=== PATIENT | female | born 1970 | race Caucasian/White ===

== ENCOUNTER 2019-11-18 09:21 | Observation (INO) | payer OTHER ==
[~2019-11-18] VITALS: Ht 162.6 cm; Wt 75.8 kg
[~2019-11-18 09:21] MED LIST: CIPR500T94 PO; FLUC200T PO; PHEN-318 PO
[2019-11-18] MEDS ORDERED: IV NORMAL SALINE 1,000ML 1,000 ML IV SCH (09:35)
--- NOTE | 2019-11-18 09:44 | EKG ---
[address] [address] Test Date: 2019-11-18 Test Time: 09:34:46 Pat Name: CAMMY PHAN Department: Room: Gender: F Senior Computer Specialist: : 1970 Requested By: KENYA LALA Order Number: [id number] Reading MD: Zachary Ross MD Measurements Intervals [place] Rate: 64 P: 54 ND: 170 QRS: 45 QRSD: 78 T: 8 QT: 414 QTc: 431 Interpretive Statements SINUS RHYTHM Electronically Signed On 11-18-2019 10:23:44 CDT by Zachary Ross MD
[2019-11-18] MEDS ORDERED: ASPIRIN CHEWABLE 81 MG TABLET. PO ONE (09:45)
--- NOTE | 2019-11-18 09:49 | PHYS DOC ---
Past History Past Medical History: Asthma Past Surgical History: Other Alcohol Use: Occasionally Drug Use: None General Adult EDM: Chief Complaint: CHEST PAIN HPI: HPI: 49-year-old female presents with chest pain. She states that this started around 8 AM. She was sitting at work at her desk. She does started to have a central pressure and burning sensation in her chest. It has continued to increase. It is currently a 7 out of 10. She decided to come the emergency room because she had some shortness of breath with the pain as well as arm tingling. Patient thought it might be her asthma, but did not take a breathing treatment. She also wondered about a mild panic attack. She is on escitalopram for anxiety with Ativan for as needed. She has not taken any Ativan today. She does feel like the pain is different than her anxiety. She denies fever chills. Review of Systems: Review of Systems: Constitutional: Denies fever or chills Eyes: Denies change in visual acuity HENT: Denies nasal congestion or sore throat Respiratory: Denies cough or shortness of breath Cardiovascular: chest pain GI: Denies abdominal pain, nausea, vomiting, bloody stools or diarrhea : Denies dysuria Musculoskeletal: Denies back pain or joint pain Integument: Denies rash Neurologic: Denies headache, focal weakness or sensory changes Endocrine: Denies polyuria or polydipsia Lymphatic: Denies swollen glands Psychiatric: Denies depression or anxiety Heart Score: HEART Score for Chest Pain: HEART Score for Chest Pain Response (Comments) Value History Moderately Suspicious 1 ECG Normal 0 Age >45 - < 65 1 Risk Factors 1 or 2 Risk Factors 1 Total 3 Risk Factors: Risk Factors: DM, Current or recent (<one month) smoker, HTN, HLP, family history of CAD, obesity. Risk Scores: Score 0 - 3: 2.5% MACE over next 6 weeks - Discharge Home Score 4 - 6: 20.3% MACE over next 6 weeks - Admit for Clinical Observation Score 7 - 10: 72.7% MACE over next 6 weeks - Early Invasive Strategies Current Medications: Current Meds: Current Medications Medications (Trade) Dose Ordered Sig/Lolly Start Time Stop Time Status Last Admin Dose Admin Sodium Chloride 1,000 ml @ 1,000 mls/hr Q1H 11/18/19 09:35 11/18/19 10:34 Allergies: Allergies: Allergies Coded Allergies Type Severity Reaction Last Updated Verified Sulfa (Sulfonamide Antibiotics) Allergy Unknown 11/06/15 Yes nickel Allergy Unknown 11/06/15 Yes Physical Exam: PE: Constitutional: Well developed, well nourished, mild acute distress, non-toxic appearance. [] HENT: Normocephalic, atraumatic, bilateral external ears normal, oropharynx moist, no oral exudates, nose normal. [] Eyes: PERRLA, EOMI, conjunctiva normal, no discharge. [] Neck: Normal range of motion, no tenderness, supple, no stridor. [] Cardiovascular: Heart rate regular rhythm, no murmur [] Lungs & Thorax: Bilateral breath sounds clear to auscultation [] Abdomen: Bowel sounds normal, soft, no tenderness, no masses, no pulsatile masses. [] Skin: Warm, dry, no erythema, no rash. [] Back: No tenderness, no CVA tenderness. [] Extremities: No tenderness, no cyanosis, no clubbing, ROM intact, no edema. [] Neurologic: Alert and oriented X 3, normal motor function, normal sensory function, no focal deficits noted. [] Psychologic: Affect normal, judgement normal, mood anxious. [] EKG: EKG: Sinus rhythm, rate 64, normal axis, no ST elevations or depressions. [] Radiology/Procedures: Radiology/Procedures: [] Course & Med Decision Making: Course & Med Decision Making Pertinent Labs and Imaging studies reviewed. (See chart for details) The patient's EKG is unremarkable. She was given 324 of aspirin on arrival. Her labs are unremarkable. Her troponin is negative. Her heart score is a 3. The patient's pain sounds like it could be GI related, so I have ordered a GI cocktail. The GI cocktail did not help the patient. She was given 1 nitro which improved her pain from a 7 to a 4. Her heart score is a 3 however the patient is very concerned and is willing to stay for further trending. I believe this is reasonable. I spoke with Dr. Huynh and he has accepted the patient for observation admission and chest pain rule out. [] Dragon Disclaimer: Dragon Disclaimer: This electronic medical record was generated, in whole or in part, using a voice recognition dictation system. Departure Departure: Disposition: ADMITTED INPATIENT Admitting Physician: Ho, Dee Condition: STABLE Referrals: DEE WILLINGHAM MD (PCP) KENYA LALA DO November 18, 2019 09:49
[2019-11-18 09:55] LABS: BASO % 1 % (0-3); EOS # 0.1 x10^3/uL (0.0-0.7); EOS % 2 % (0-3); HEMATOCRIT 42.2 % (36.0-47.0); HEMOGLOBIN 13.8 g/dL (12.0-15.5); LYMPH # 1.7 x10^3/uL (1.0-4.8); LYMPH % 43 % (24-48); MEAN CORPUSCULAR HEMOGLOBIN 32 pg (25-35); MEAN CORPUSCULAR HGB CONC 33 g/dL (31-37); MEAN CORPUSCULAR VOLUME 98 fL (79-100); MONO # 0.5 x10^3/uL (0.0-1.1); MONO % 12 % (0-9); NEUT # 1.6 x10^3uL (1.8-7.7); NEUT % 42 % (31-73); PLATELET COUNT 230 x10^3/uL (140-400); RED BLOOD COUNT 4.33 x10^6/uL (3.50-5.40); RED CELL DISTRIBUTION WIDTH 13.5 % (11.5-14.5); WHITE BLOOD COUNT 3.9 x10^3/uL (4.0-11.0)
[2019-11-18] MEDS ORDERED: LIDO:MAALOX 1:1 20 ML SINGLE DOSE. PO ONE (10:00)
[2019-11-18 10:02] LABS: CALCIUM 8.7 mg/dL (8.5-10.1); CREATININE 0.7 mg/dL (0.6-1.0); GFR 89.7; POTASSIUM 4.2 mmol/L (3.5-5.1)
--- NOTE | 2019-11-18 10:02 | RAD ---
PORTABLE CHEST 1V History: Chest pain Comparison: None. Findings: No consolidation or pleural effusion. Normal heart size. No pneumothorax. Impression: 1. No acute cardiopulmonary process. Electronically signed by: Akbar Navarro DO (11/18/2019 9:59 AM) [id number]
[2019-11-18 10:08] LABS: ALBUMIN 4.1 g/dL (3.4-5.0); TOTAL BILIRUBIN 0.6 mg/dL (0.2-1.0); TOTAL PROTEIN 8.1 g/dL (6.4-8.2)
[2019-11-18] MEDS: NITROGLYCERIN SUBLINGUAL 0.4 MG BOTTLE OF 25. SL PRN ×4 (11:23→18:04)
[2019-11-18] MEDS ORDERED: MV-M1TAB7 PO (13:40)
[2019-11-18] MEDS ORDERED: ALBU0.63 NEB (13:40)
[2019-11-18] MEDS ORDERED: FLUT9.9S NS (13:40)
[2019-11-18] MEDS ORDERED: METF500T16 PO (13:40)
[2019-11-18] MEDS ORDERED: ZOLP5TAB PO (13:40)
[2019-11-18] MEDS ORDERED: LORA-254 PO (13:40)
[2019-11-18] MEDS ORDERED: MONT10TA80 PO (13:40)
[2019-11-18] MEDS ORDERED: FAMO20TA5 PO (13:40)
[2019-11-18] MEDS ORDERED: ESCITALOPRAM OX20 MG PO (13:40)
[2019-11-18] MEDS ORDERED: CETI10TA24 PO (13:40)
[2019-11-18] MEDS ORDERED: HYDR-2155 PO (13:40)
--- NOTE | 2019-11-18 13:47 | HP ---
ADMIT DATE: 11/18/2019 ATTENDING PHYSICIAN: Dr. Justice. CHIEF COMPLAINT: Central chest pain. HISTORY OF PRESENT ILLNESS: The patient is a 49-year-old female admitted through the ED with new onset of chest pain at rest. Started on 8:00 this morning, she was sitting at work at her desk, she had central pressure with burning sensation in the chest, very severe, much more so than previous symptom. They continued increase, currently 7/10. She had some anxiety and shortness of breath. There is a history of panic attacks in the past. She is on Lexapro and Ativan. In the ED, the EKG was nondiagnostic. Cardiac enzymes were negative. She has minimal risk factors. She does not know her family history. She is , but was adopted and therefore did not know her parents' history. 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 She is a nonsmoker. She is not diabetic. She is admitted for further treatment, serial enzymes and Cardiology evaluation. PAST MEDICAL HISTORY: Significant for anxiety disorder. She has had a partial hysterectomy. She has otherwise been healthy. SOCIAL HISTORY: She does not smoke, but she drinks 1-2 cocktails at night. She is and lives with her and 4 children. ALLERGIES: SHE HAS ALLERGIES TO SULFA DRUGS AND NICKEL, EXACT ETIOLOGY IS UNCLEAR. CURRENT SCHEDULED MEDICINES: Include Lexapro and p.r.n. Ativan. FAMILY HISTORY: As noted. REVIEW OF SYSTEMS: Significant for the chest pain at rest, non-exertional. She has not had a previous cardiac workup. There is a remote history of panic attack that is mild. She states she is not under too much stress. She lives with her . 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 No recent fevers, chills, cough, congestion. All other systems reviewed and determined to be negative. PHYSICAL EXAMINATION: GENERAL: When I saw her, this is a pleasant young middle-aged female. INITIAL VITAL SIGNS: Showed a blood pressure of 128/75, temperature 98.0 degrees Fahrenheit, pulse 74 and regular, oxygen saturation 98% on room air. HEENT: Head is without trauma. Pupils are reactive. Sclerae nonicteric. Oropharynx is clear. NECK: Supple, no bruits identified. LUNGS: Otherwise clear. CARDIOVASCULAR: Showed distant heart tones. No obvious gallops. Peripheral pulses are palpable and full. ABDOMEN: Soft, scaphoid, nontender, no organomegaly. Bowel sounds were normoactive. EXTREMITIES: Show no cyanosis or edema. NEUROLOGIC: Focally intact. Speech is fluent. No deficit. SKIN: Warm and dry. PERTINENT LABORATORY STUDIES: Blood tests: Her hemoglobin is 13.8 g/dL with a white count of 3900. The chemistry panel was unremarkable. The first set of cardiac enzymes negative for myocardial necrosis. Nonfasting blood sugar 112. The resting 12-lead electrocardiogram showed a sinus rhythm without any acute changes. Chest x-ray showed heart size within normal limits, no acute infiltrates identified, otherwise unremarkable. ASSESSMENT: 1. A 49-year-old female with atypical chest pressure pain at rest. Does not sound typical cardiac, she has minimal risk factors. I believe her symptoms are GI in nature, aggravated by her alcohol and caffeine use. 2. Remote history of panic attacks. PLAN: 1. Observation admission. 2. Serial troponin levels. 3. Cardiology evaluation for further workup. DEE JUSTICE MD DR: DAPHNIE/helga JOB#: [id number] / [id number]
[2019-11-18 13:54] VITALS: BP 114/69
[2019-11-18] MEDS: CETIRIZINE HCL 10 MG TABLET PO SCH (18:37)
[2019-11-18 19:43] VITALS: BP 106/68
[2019-11-18] MEDS ORDERED: ZOLPIDEM 5 MG TABLET. PO PRN (21:00)
[2019-11-18] MEDS: SUCRALFATE 1 GM/10 ML ORAL.SUSP. PO SCH (21:15)
[2019-11-18 22:39] VITALS: BP 112/78
[2019-11-19 05:19] VITALS: BP 106/66
[2019-11-19] MEDS: CETIRIZINE HCL 10 MG TABLET PO SCH (08:53)
[2019-11-19] MEDS: SUCRALFATE 1 GM/10 ML ORAL.SUSP. PO SCH ×2 (08:54→14:59)
[2019-11-19] MEDS ORDERED: ASPIRIN ENTERIC COATED 81 MG TABLET.DR. PO SCH (09:00)
--- NOTE | 2019-11-19 09:03 | PDOC2 ---
TREVIN MCCLURE INDUSTRIAL MACHINERY MECHANIC 11/19/19 0903: CARDIAC CONSULT DATE OF CONSULT Date Of Consult DATE: 11/19/19 TIME: 08:55 REASON FOR CONSULT Reason for Consult Chest pain REFERRING PHYSICIAN Referring Physician Dr. Huynh SOURCE Source: Chart review, Patient HPI History of Present Illness This is a 49 yo female who presented secondary to chest pain. Patient reports she developed burning pressure in her central chest, epigastric region yesterday. Was worse with deep breathing. Area is slightly tender upon palpitations. Pain persisted so she came to the ED for further evaluation and treatment. Pain stayed localized in her central chest; did not radiated. No associated dizziness, diaphoresis, shortness of breath, or nausea/vomiting. Pain no greatly improved with GI cocktail, but seem to be better with carafate. Pain was initially better overnight, but seemed to be worsened following eating this am. PAST MEDICAL HISTORY Cardiovascular: hyperipidemia Pulmonary: Asthma, Other (EBER) GI: GERD Psych: Anxiety, Depression Endocrine: Diabetes, Hypothyroidism PAST SURGICAL HISTORY Past Surgical History: Tubal Ligation, Other (cervical fusion) FAMILY HISTORY Family History: Adopted SOCIAL HISTORY Smoke: No ALCOHOL: other (1-2 Whiskey drinks per night ) Drugs: None Lives: with Family CURRENT MEDICATIONS Current Medications Current Medications Sodium Chloride 1,000 ml @ 1,000 mls/hr Q1H IV Last administered on 11/18/19at 10:15; Start 11/18/19 at 09:35; Stop 11/18/19 at 10:34; Status DC Aspirin (Aspirin Chewable) 324 mg 1X ONCE PO Last administered on 11/18/19 10:15; Start 11/18/19 at 09:45; Stop 11/18/19 at 09:57; Status DC Multi-Ingredient Mouthwash/Gargle (Gi Cocktail) 20 ml 1X ONCE PO Last administered on 11/18/19at 10:10; Start 11/18/19 at 10:00; Stop 11/18/19 at 10:01; Status DC Nitroglycerin (Nitrostat) 0.4 mg PRN Q5MIN PRN SL CHEST PAIN Last administered on 11/18/19at 18:04; Start 11/18/19 at 10:45 Lorazepam (Ativan Inj) 1 mg 1X ONCE IVP Last administered on 11/18/19at 11:40; Start 11/18/19 at 11:45; Stop 11/18/19 at 11:46; Status DC Cetirizine HCl (ZyrTEC) 10 mg DAILY PO Last administered on 11/19/19at 08:53; Start 11/18/19 at 15:45 Zolpidem Tartrate (Ambien) 5 mg PRN QHS PRN PO INSOMNIA; Start 11/18/19 at 21:00 Lorazepam (Ativan Inj) 1 mg 1X ONCE IVP Last administered on 11/18/19at 18:37; Start 11/18/19 at 18:30; Stop 11/18/19 at 18:31; Status DC Lorazepam (Ativan Inj) 0.5 mg PRN Q4HRS PRN IVP ANXIETY / AGITATION; Start 11/18/19 at 20:45 Sucralfate (Carafate) 2 gm TID PO Last administered on 11/19/19at 08:54; Start 11/18/19 at 21:00 Active Scripts Active Reported Albuterol Sulfate Neb Soln (Albuterol Sulfate) 0.63 Mg/3 Ml Vial.neb 1 Vial NEB QID PRN Ativan (Lorazepam) 1 Mg Tablet 0.5 Mg PO BID MDD 2 Tablet(s) 30 Days Vitamin D3 Complete Caplet (Mv-Mn/Iron/Fa/Herbal Cmplx#190) 1 Each Tablet 50,000 Units PO WEEKLY Flonase Allergy Relief (Fluticasone Propionate) 9.9 Ml [place].susp 2 Sprays NS DAILY Escitalopram Oxalate 20 Mg Tablet 1 Tab PO DAILY Hydrocodone-Apap 5-325 (Hydrocodone Bit/Acetaminophen) 1 Each Tablet 1 Tab PO PRN Q6HRS PRN Famotidine 20 Mg Tablet 20 Mg PO DAILY Montelukast Sodium Tablet (Montelukast Sodium) 10 Mg Tablet 10 Mg PO HS Metformin Hcl 500 Mg Tablet 1 Tab PO BID Ambien (Zolpidem Tartrate) 5 Mg Tablet 5 Mg PO PRN QHS PRN Zyrtec (Cetirizine Hcl) 10 Mg Tablet 1 Tab PO DAILY ALLERGIES Allergies: Coded Allergies: Sulfa (Sulfonamide Antibiotics) (Verified Allergy, Unknown, 11/06/15) nickel (Verified Allergy, Unknown, 11/06/15) ROS Review of Systems 14 point ROS conducted with pertinent positives noted above in HPI PHYSICAL EXAM General: Alert, Oriented X3, Cooperative, No acute distress HEENT: Atraumatic, Mucous membr. moist/pink Lungs: Clear to auscultation, Normal air movement Heart: Regular rate, Normal S1, Normal S2 Abdomen: Soft, No tenderness Extremities: No edema, Normal pulses Skin: No breakdown Neuro: Normal speech, Strength at 5/5 X4 ext, Sensation intact Psych/Mental Status: Mental status NL, Mood NL MUSCULOSKELETAL: Osteoarthritic changes both hands VITALS Vital Signs Vital Signs Date Time Temp Pulse Resp B/P (MAP) Pulse Ox O2 Delivery O2 Flow Rate FiO2 11/19/19 05:19 97.7 77 20 106/66 (79) 98 Room Air LABS LABS Laboratory Tests Test 11/18/19 09:31 11/18/19 19:50 White Blood Count 3.9 x10^3/uL (4.0-11.0) Red Blood Count 4.33 x10^6/uL (3.50-5.40) Hemoglobin 13.8 g/dL (12.0-15.5) Hematocrit 42.2 % (36.0-47.0) Mean Corpuscular Volume 98 fL (79-100) Mean Corpuscular Hemoglobin 32 pg (25-35) Mean Corpuscular Hemoglobin Concent 33 g/dL (31-37) Red Cell Distribution Width 13.5 % (11.5-14.5) Platelet Count 230 x10^3/uL (140-400) Neutrophils (%) (Auto) 42 % (31-73) Lymphocytes (%) (Auto) 43 % (24-48) Monocytes (%) (Auto) 12 % (0-9) Eosinophils (%) (Auto) 2 % (0-3) Basophils (%) (Auto) 1 % (0-3) Neutrophils # (Auto) 1.6 x10^3uL (1.8-7.7) Lymphocytes # (Auto) 1.7 x10^3/uL (1.0-4.8) Monocytes # (Auto) 0.5 x10^3/uL (0.0-1.1) Eosinophils # (Auto) 0.1 x10^3/uL (0.0-0.7) Basophils # (Auto) 0.0 x10^3/uL (0.0-0.2) Sodium Level 138 mmol/L (136-145) Potassium Level 4.2 mmol/L (3.5-5.1) Chloride Level 103 mmol/L (98-107) Carbon Dioxide Level 25 mmol/L (21-32) Anion Gap 10 (6-14) Blood Urea Nitrogen 9 mg/dL (7-20) Creatinine 0.7 mg/dL (0.6-1.0) Estimated GFR (Cockcroft-Gault) 89.7 BUN/Creatinine Ratio 13 (6-20) Glucose Level 112 mg/dL (70-99) Calcium Level 8.7 mg/dL (8.5-10.1) Total Bilirubin 0.6 mg/dL (0.2-1.0) Aspartate Amino Transf (AST/SGOT) 36 U/L (15-37) Alanine Aminotransferase (ALT/SGPT) 62 U/L (14-59) Alkaline Phosphatase 51 U/L (46-116) Troponin I Quantitative < 0.017 ng/mL (0-0.055) < 0.017 ng/mL (0-0.055) Total Protein 8.1 g/dL (6.4-8.2) Albumin 4.1 g/dL (3.4-5.0) Albumin/Globulin Ratio 1.0 (1.0-1.7) ASSESSMENT/PLAN Assessment/Plan 1. Chest pain; atypical. AMI ruled out. EKG without significant acute changes. Most probably GI in nature. Improved with Carafate, worsened with eating 2. Diabetes, II 3. Hyperlipidemia 4. Hypothyroidism 5. EBER with CPAP 6. Anxiety, depression Recommendations Lipids- statin if indicated TSH Add PPI Given risk factors, will plan for outpatient MPI as arranged. Follow up with Dr. Ross as scheduled. AUBREY ROSS MD 11/19/19 8780: CARDIAC CONSULT ASSESSMENT/PLAN Assessment/Plan Pt. seen and examined. Agree with above FORMS ANALYST note. Low risk presentation of chest pain. Normal EKG, trop Supportive care. Thanks TREVIN MCCLURE APRN November 19, 2019 09:03 AUBREY ROSS MD November 19, 2019 16:05
[2019-11-19] MEDS ORDERED: CITALOPRAM 20 MG TABLET. PO SCH (11:00)
[2019-11-19 11:28] VITALS: BP 113/76
[2019-11-19] MEDS ORDERED: ONDANSETRON PF 4 MG/2 ML VIAL. IVP PRN (11:30)
[2019-11-19] MEDS ORDERED: IV DEXTROSE 5 %-0.45 % NACL 1,000 ML IV SCH (11:30)
[2019-11-19] MEDS ORDERED: SUMAtriptan SUCCINATE 50 MG TABLET PO PRN (11:30)
[2019-11-19] MEDS ORDERED: PANTOPRAZOLE 40 MG TABLET. PO SCH (14:00)
[2019-11-19 14:44] LABS: THYROID STIM HORMONE (TSH) 0.621 uIU/mL (0.358-3.740)
[2019-11-19] MEDS ORDERED: SUCR1ORA5 PO (15:24)
[2019-11-19] MEDS ORDERED: PANT40TA3 PO (15:24)
[2019-11-19 15:27] VITALS: BP 116/81
--- NOTE | 2019-11-19 15:48 | DS ---
DATE OF DISCHARGE: 11/18/2019 HOSPITAL COURSE: The patient is a 49-year-old female patient who presented to the Emergency Room with a complaint of chest pain that she developed burning sensation in her central chest and epigastric region was worse with deep breathing, areas highly tender upon palpation. The pain persisted, she came to the Emergency Room for further evaluation and treatment. Her pain stayed localized to the central chest did not radiate. She has no associated dizziness, diaphoresis, shortness of breath, nausea, or vomiting. Her pain is improved with GI cocktail and with Carafate. Apparently, her pain improved overnight, but worsened with eating. She was extensively investigated and basically has 2 sets of cardiac enzymes that were negative. Her fasting lipid profile, which showed that her total cholesterol was 188, LDL was 117, VLDL was 20, HDL cholesterol was 51, ratio 3. TSH was normal. Her EKG was unremarkable and did not show any evidence of ST segment elevation. She was seen in consultation by the Cardiology team and they recommended that the patient can be discharged on proton pump inhibitor and Carafate; however, she has multiple risk factors for premature coronary artery disease. Arrangement will be made for her to have an outpatient MPI and follow up with Dr. Ross as scheduled. PHYSICAL EXAMINATION: GENERAL: When I saw her this afternoon, she was sitting slightly propped up in bed, in no apparent respiratory distress. She continued to have some chest pain, though much improved compared to yesterday. There was no pallor, jaundice, cyanosis or thyromegaly. No jugular venous distention. No limb edema. VITAL SIGNS: Her heart rate was 78, blood pressure was 113/76, temperature was 98.3, respiratory rate was 18, and oxygen saturation was 96%. HEAD, EYES, EARS, NOSE AND THROAT: Showed normocephalic and atraumatic. NECK: Supple. HEART: Showed normal first and second heart sounds. No gallop or murmur. CHEST: Clear to auscultation. No crepitation or rhonchi. ABDOMEN: Distended, soft, nontender. NEUROLOGIC: She was awake, alert, responding appropriately. All cranial nerves are intact. She moves extremities without difficulty. She ambulates without assistance or assistive devices. Her intake and output were incompletely recorded. LABORATORY DATA: As of yesterday showed a white cell count of 3900, hemoglobin 14, hematocrit 42, MCV 98, and platelet count 230,000. Her chemistry showed a serum sodium 138, potassium 4.2, chloride 103, bicarbonate 25, anion gap of 10, BUN 9, creatinine 0.7, estimated GFR was 89 mL per minute. Her glucose was 112, calcium was 8.7. Total bilirubin 0.6, AST and alkaline phosphatase normal, ALT elevated. Her troponin was less than 0.017 done twice. Her total protein was 8.1, albumin 4.1. Her serum triglycerides was 101. Total cholesterol was 188, LDL was 117, VLDL was 20, HDL cholesterol was 51, the ratio was 3 and TSH was 0.61. DISCHARGE MEDICATIONS: The patient will be discharged to continue on all her medication including albuterol sulfate by nebulizer 4 times a day, cetirizine (Zyrtec) 10 mg daily, escitalopram oxalate 20 mg once a day, famotidine 20 mg daily, Flonase 2 sprays to each nostril once a day, hydrocodone/APAP 5/325 one tablet every 6 hours, lorazepam 0.5 mg twice a day, metformin 500 mg twice a day, montelukast sodium 10 mg at bedtime, multivitamin with mineral 1 tablet once a day, vitamin D3 50,000 once a week, and Ambien 5 mg at bedtime as needed. She was discharged also on Protonix and Carafate. FINAL DISCHARGE DIAGNOSES: 1. Chest pain, atypical. 2. Gastroesophageal reflux disease. 3. Type 2 diabetes. 4. Hyperlipidemia. 5. Hypothyroidism. 6. Obstructive sleep apnea, on continuous positive airway pressure. 7. Anxiety and depression. CRISTINA SHIPLEY MD DR: BEVERLEY/helga JOB#: [id number] / [id number]
[2019-11-20] MEDS ORDERED: CITALOPRAM 20 MG TABLET. PO SCH (09:00)
== END 2019-11-19 16:05 | disposition home or self-care (01) ==
LOC: ER 09:21 → 1 SOUTH 12:15 → ER 13:12
PROVIDERS: ADMIT Internal Medicine; ATTEND Internal Medicine
DX: R07.89 Other chest pain (principal); F41.0 Panic disorder [episodic paroxysmal anxiety]; K21.9 Gastro-esophageal reflux disease without esophagitis; E78.5 Hyperlipidemia, unspecified; E03.9 Hypothyroidism, unspecified; E11.9 Type 2 diabetes mellitus without complications; G47.33 Obstructive sleep apnea (adult) (pediatric); F32.9 Major depressive disorder, single episode, unspecified; J45.909 Unspecified asthma, uncomplicated; Z90.711 Acquired absence of uterus with remaining cervical stump
CPT/HCPCS: 36415; 71045; 80053; 80061; 84443; 84484; 85025; 93005; 96374; 96375; 96376; 99285; G0378; J2060; J2405; G0379; J7030

== ENCOUNTER → 2020-01-02 | Outpatient (CLI) | payer OTHER ==
[~2020-01-02] MED LIST changes: +ALBU0.63 NEB; +ALBU2.5V8 INH; +BUDE0.5A3 NEB; +CETI10TA74 PO; +ESCITALOPRAM OX20 MG PO; +FAMO20TA5 PO; +FLUT9.9S NS; +FURO-69 PO; +HYDR-2155 PO; +LORA-254 PO; +METF500T16 PO; +MONT10TA80 PO; +MV-M1TAB7 PO; +PANT40TA3 PO; +RIZA10TA PO; +SUCR1ORA5 PO; +TIZA4TAB8 PO; +ZOLP5TAB PO
== END | disposition home or self-care (01) ==
LOC: LAB 08:19
PROVIDERS: ATTEND Nurse Anesthetist, Certified Registered
DX: Z01.812 Encounter for preprocedural laboratory examination (principal); Z11.59 Encounter for screening for other viral diseases; K63.89 Other specified diseases of intestine
CPT/HCPCS: C9803; U0003

== ENCOUNTER → 2020-01-08 | Day surgery (SDC) | payer OTHER ==
[~2020-01-08] MED LIST changes: +ALBUTEROL SULFATE 2.5 MG/3 ML NEBU. NEB PRN; +ATROPINE 0.5 MG/5 ML DISP.SYRIN. IV PRN; +CETI10TA24 PO; -CETI10TA74 PO; +IV RINGERS SOLUTION,LACTATED 1,000 ML IV SCH; +PHENOL ORAL SPRAY 177ML BOTTLE. MM PRN; +PROPOFOL 10,000 MCG/ML (20ML) VIAL IV ONE; +diphenhydrAMINE 50 MG/ML VIAL IV PRN
[2020-01-08 11:06] VITALS: BP 102/72
--- NOTE | 2020-01-09 14:09 | PATHOLOGY ---
[facility] Accession Number: [id number] . 01 Material submitted: . rectum - BX RECTAL POLYP . 02 Diagnosis: Colorectal biopsy, rectal polyp: - Hyperplastic polyp. ([facility] 01/09/2020) [facility] 01/09/2020 0957 Local . 02 Comment: There are no adenomatous changes or evidence of malignancy. ([facility] 01/09/2020) . 02 Electronically signed: . Melchor Meyer MD, Pathologist NPI- [id number] . 01 Gross description: . The specimen is received in formalin, labeled "Lita Flores, BX rectal polyp" and consists of a fragment of pink-perdeu tissue measuring 0.4 x 0.3 x 0.2 cm which is entirely submitted in A1. ([facility]; 01/08/2020) [facility]/JF[facility] 01/08/2020 1706 Local . 02 Pathologist provided ICD-10: K62.1 . 02 CPT . 026211 Specimen Comment: A courtesy copy of this report has been sent to [phone] Specimen Comment: 2220 Specimen Comment: Report sent to / DR WILLINGHAM Performed at: 01 [facility] [address], [place], [place] [id number] MD Niall Welsh MD Phone: [phone] Performed at: 02 [facility] [address], [place] [id number] MD Melchor Meyer MD Phone: [phone]
== END | disposition home or self-care (01) ==
LOC: SURG 08:16
PROVIDERS: ATTEND Internal Medicine Gastroenterology
DX: K92.1 Melena (principal); K62.1 Rectal polyp; K63.89 Other specified diseases of intestine; J45.909 Unspecified asthma, uncomplicated; F41.9 Anxiety disorder, unspecified; G47.33 Obstructive sleep apnea (adult) (pediatric); E11.9 Type 2 diabetes mellitus without complications; Z98.890 Other specified postprocedural states; Z88.1 Allergy status to other antibiotic agents; Z79.899 Other long term (current) drug therapy; Z79.84 Long term (current) use of oral hypoglycemic drugs; Z88.8 Allergy status to other drugs, medicaments and biological substances
CPT/HCPCS: 45380; 88305; J2704; J7120; 45378

== ENCOUNTER → 2021-04-14 | Outpatient (CLI) | payer OTHER ==
[2020-01-08 11:06] VITALS: BP 102/72
[~2021-04-14] MED LIST changes: -ALBUTEROL SULFATE 2.5 MG/3 ML NEBU. NEB PRN; -ATROPINE 0.5 MG/5 ML DISP.SYRIN. IV PRN; -CETI10TA24 PO; +CETI10TA74 PO; -IV RINGERS SOLUTION,LACTATED 1,000 ML IV SCH; -PHENOL ORAL SPRAY 177ML BOTTLE. MM PRN; -PROPOFOL 10,000 MCG/ML (20ML) VIAL IV ONE; -diphenhydrAMINE 50 MG/ML VIAL IV PRN
--- NOTE | 2021-04-14 16:35 | RAD ---
XR SHOULDER_LEFT 2+ VIEWS DATE: 04/14/2021 1:10 PM INDICATION: Reason: LEFT SHOULDER PAIN. NKI. / Spl. Instructions: / History: COMPARISON: None. FINDINGS: Bones: There is no evidence of acute fracture or dislocation. Joints: The joint spaces are normal. The acromiohumeral distance is not narrowed. Miscellaneous: No abnormal soft tissue calcifications in the shoulder. IMPRESSION: Normal exam Electronically signed by: Junaid Adrian MD (04/14/2021 4:32 PM) [id number]
== END ==
LOC: RAD 13:05
PROVIDERS: ATTEND Physician Assistant
DX: M25.512 Pain in left shoulder (principal)
CPT/HCPCS: 73030